=== PATIENT | female | born 1985 | race Two or more races ===

== ENCOUNTER 2019-01-07 21:57 | Emergency (ER) | payer OTHER ==
[2019-01-07 22:33] VITALS: BP 101/69
--- NOTE | 2019-01-07 23:53 | ER Document Report ---
ED Breast Problem - General Chief Complaint: Breast Problem Stated Complaint: FEVER Time Seen by Provider: 01/07/19 23:35 Primary Care Provider: CINDY LOPEZ MD [Primary Care Provider] - Follow up as needed Notes: Patient is a 33-year-old female who presents emergency department with a chief complaint of right breast pain and fever. She is currently breast-feeding and states that she feels her breast is hard. She gave on December 23. Her daughter really is not feeding on that side. She states that she was also diagnosed with an upper respiratory tract infection the other day and that she has had a fever since then. She denies any redness to the area. She was told by the product development consultant that she should come to the emergency department to be evaluated. She denies any nausea, vomiting, or diarrhea. She does admit to having some rhinorrhea. TRAVEL OUTSIDE OF THE [place] IN LAST 30 DAYS: No - Related Data Allergies/Adverse Reactions: aspirin Allergy (Verified 01/07/19 21:58) Past Medical History - Social History Smoking Status: Unknown if Ever Smoked Family History: Reviewed & Not Pertinent Review of Systems - Review of Systems Notes: REVIEW OF SYSTEMS: CONSTITUTIONAL : See HPI EENT: Denies eye, ear, throat, or mouth pain, discharge, or symptoms. Denies nasal or sinus congestion. CARDIOVASCULAR: Denies chest pain. RESPIRATORY: See HPI GASTROINTESTINAL: Denies nausea, vomiting, and diarrhea. Denies abdominal pain. Denies constipation. GENITOURINARY: Denies difficulty urinating, burning, blood in urine, urgency or frequency. MUSCULOSKELETAL: Denies neck and back pain. Denies joint pain or swelling. SKIN: Denies rash, itchiness, or lesions HEMATOLOGIC : Denies easy bruising or bleeding. LYMPHATIC: Denies swollen, painful, enlarged glands. NEUROLOGICAL: Denies no numbness or tingling denies weakness. Denies headache. Denies altered mental status. Denies alteration in speech. PSYCHIATRIC: Denies stress, anxiety, alteration in sleep patterns, or depression. BREAST: See HPI All other systems reviewed and negative. Physical Exam - Vital signs Vitals: Temp Pulse Resp BP Pulse Ox 98.5 F 82 16 101/69 98 01/07/19 22:31 01/07/19 22:31 01/07/19 22:31 01/07/19 22:31 01/07/19 22:31 - Notes Notes: PHYSICAL EXAMINATION: GENERAL: Appears well, healthy, well-nourished, no acute distress. HEAD: Normocephalic, atraumatic. EYES: PERRL, conjunctiva normal, all extraocular movements intact, sclera nonicteric ENT: Moist mucous membranes. NECK: Supple, no noticeable swelling, redness, rash. Normal range of motion. LUNGS: Equal breath sounds bilaterally and clear to auscultation. No wheezes rales or rhonchi. CARDIOVASCULAR: S1-S2, regular rate, regular rhythm. Radial pulses 2+, normal. ABDOMEN: Normoactive bowel sounds. Soft, nontender, no guarding, no rebound tenderness, and no masses palpated. EXTREMITIES: Normal strength and range of motion, no pitting or edema. No cyanosis. NEUROLOGICAL: Moves all extremities upon command. Strength 5/5 in all extremities. PSYCH: Normal mood, normal affect. SKIN: Warm, dry. No rash, lesions, ulcerations noted. Normal skin turgor. BREAST: Right side mildly engorged. No redness noted. Able to express milk from the area. Course - Re-evaluation Re-evalutation: Since physical exam is not consistent with mastitis. There is no redness or significant engorgement noted to her breast. She does have some milk ducts that are palpable. I suspect patient has a fever because she has an upper respiratory viral infection. Able to express milk from her breast. Firmness has decreased with expression of her milk. She will follow-up with her primary care provider if her symptoms worsen. She will be started on Tylenol for pain control. Antibiotics are not indicated at this time. I do not suspect patient has cellulitis. Verbal discharge instructions were given to the patient. They verbalized understanding. They are stable for discharge. - Vital Signs Vital signs: Temp Pulse Resp BP Pulse Ox 98.5 F 82 16 101/69 98 01/07/19 22:31 01/07/19 22:31 01/07/19 22:31 01/07/19 22:31 01/07/19 22:31 Discharge - Discharge Clinical Impression: Breast engorgement, Fever Condition: Stable Disposition: HOME, SELF-CARE Additional Instructions: You were seen today in the emergency department for a fever and engorged breasts. Your exam is normal and does not appear like it is mastitis. Please pump to relieve your breast. You may use ice packs or heat packs to help with any pain. You can also take Tylenol 650 mg every 8 hours as needed for your pain and fever. Please follow-up with your primary care provider in regards to this visit. Referrals: CINDY LOPEZ MD [Primary Care Provider] - Follow up as needed
== END 2019-01-08 | disposition home or self-care (01) ==
LOC: ER 21:57
DX: O92.79 Other disorders of lactation (principal); R50.9 Fever, unspecified
CPT/HCPCS: 99283